=== PATIENT | male | born 1985 | race Caucasian/White ===

== ENCOUNTER 2023-11-14 00:50 | Emergency (ER) | payer BC, SELFPAY ==
[2023-11-14 00:52] VITALS: BP 155/68; PULSE 69; RESP 16; TEMP 36.2; O2SAT 98; BMI 37.1
[2023-11-14] MEDS: Tetracaine 0.5% Ophthalmic Bottle 1 DRP LEFT EYE (01:28)
[2023-11-14] MEDS: Fluorescein 1 MG STRIP 1 STRIP LEFT EYE (01:29)
--- NOTE | 2023-11-14 01:51 | EDS_ITS ---
HPI History of Present Illness Chief Complaint: Eye Problem Informant: patient Narrative Narrative: Patient is a 38-year-old male with past medical history of anxiety and depression and xmg-jasvxax-esirgodyb diabetes who wears glasses but not contact. He states that the other day he was working when the material he was working on broke and it got into his left eye. He states he went to a outside ER and was told he had a corneal abrasion but no retained foreign body. Patient states that he feels that there is still something stuck in his eye and that now there has been increased tearing and discharge. As he is concerned there is retained foreign body he presents for evaluation [facility] Medical History (Updated 11/14/23 @ 22:[address] Bc Chino, DO) Depression Anxiety Wears glasses Diabetes Home Medications ?Medication ?Instructions ?Recorded ?Last Taken ?Type ciprofloxacin HCl 0.3 % eye drops 2 drp LEFT EYE 4X/DAY 7 days #10 mL 11/14/23 Unknown Rx oxycodone-acetaminophen 5 mg-325 1 tab PO Q6H PRN pain 3 days #12 11/14/23 Unknown Rx mg tablet (Percocet) tabs Allergy/AdvReac Type Severity Reaction Status Date / Time olanzapine (From Zyprexa) AdvReac Other Verified 11/14/23 00:53 quetiapine (From Seroquel) AdvReac Other Verified 11/14/23 00:53 Surgical History (Updated 11/14/23 @ 00:55 by Lauren Jimenez) Hx of tonsillectomy Social History Smoking Status: Current every day smoker tobacco type: e-cigarettes ROS ROS ED Constitutional Constitutional ED: Denies chills or fever(s) Eyes Eyes: Reports blurry vision and change in vision; Denies diplopia ENT ENT ED: Denies sore throat Cardiovascular Cardiovascular: Denies chest pain Respiratory/Chest Respiratory/Chest: Denies cough or dyspnea Gastrointestinal Gastrointestinal: Denies abdominal pain, diarrhea, nausea or vomiting Genitourinary Genitourinary ED: Denies dysuria Musculoskeletal Musculoskeletal: Denies myalgias Integumentary Denies rash Neurologic Neurologic: Denies headache(s) Psychiatric Psychiatric: Reports anxiety and depression Hematologic/Lymphatic Hematologic/Lymphatic: Denies easy bleeding or easy bruising EXAM Physical Exam Const Vital Signs: 11/14/23 00:52 Temperature 97.1 F L Temperature Source Temporal Pulse Rate 69 Respiratory Rate 16 Blood Pressure 155/68 H Blood Pressure Mean 97 Pulse Ox 98 Oxygen Delivery Method Room Air Positive well nourished and well developed General Appearance ED: well developed HEENT HEENT Narrative: Normocephalic atraumatic Eyes PERRL and EOMs intact bilaterally Eyes Narrative: Pupils are equal reactive to light and accommodation extraocular muscles are intact There is mild soft tissue swelling of the left upper eyelid noted Scleral injection is present with increased tearing and scant amount of purulent discharge Upper lid was everted and there is no obvious foreign body noted Patient did have complete relief of pain with tetracaine Fluorescein staining and examination with the slit-lamp shows a large corneal abrasion encompassing the entire pupil. However there is no retained foreign body noted. Negative Emily sign. Neck supple Resp normal respiratory effort and clear to auscultation bilaterally Cardio regular rate and regular rhythm Extremity normal to inspection Neuro oriented x3, CN's II-XII intact bilaterally, moves all extremities and no sensory deficits noted Sensorium / Orientation: alert Motor Exam: strength 5/5 throughout Psych Psych Narrative: Positive nervous/anxious affect Skin no rashes or lesions noted MDM MDM MDM Narrative Medical decision making narrative: Patient presented to the ER complaining of increased pain with concern of retained foreign body. Differential diagnosis is for retained foreign body versus globe rupture versus corneal abrasion versus corneal ulcer versus conjunctivitis. The patient did receive complete relief of pain with tetracaine consistent with a corneal abrasion. Examination with the slit-lamp reveals no sign of globe rupture and there is no obvious retained foreign body noted on slit lamp exam either. The patient does have a large corneal abrasion to the left eye which correlates with his history and symptoms. He does not wear contacts but with the increasing discharge there is concern for developing infection so he will be started on ciprofloxacin drops. He will be placed on Percocet for pain control but at this time as there is no globe rupture or retained foreign body and no signs of systemic infection he can be discharged home and follow-up with ophthalmology on an outpatient basis History & Record Review Discussion w/independent historian: Patient Discharge Plan Triage Chief Complaint: Eye Problem ED Provider: Bc Chino Dx/Rx/DC Orders Clinical Impression: Injury of conjunctiva and corneal abrasion of left eye w/o FB, Anxiety and depression, Non-insulin dependent diabetes mellitus Instructions: Corneal Injury Prescriptions: New ciprofloxacin HCl 0.3 % drops 2 drp LEFT EYE 4X/DAY 7 Days Qty: 10 0RF oxycodone-acetaminophen [Percocet] 5-325 mg tablet 1 tab PO Q6H PRN (Reason: pain) 3 Days Qty: 12 0RF Primary Care Provider: TALON ANN Referrals: Yaquelin Cardoso MD [Med Staff - Active Staff] - [facility] Doctor,Out of [Non-Staff] - Activity Restrictions/Additional Instructions: Stop using the tetracaine/numbing eyedrops you are given by the other ER as this could be worsening or corneal abrasion. Begin using antibiotics to prevent infection and follow-up with ophthalmology for repeat evaluation. Return to the ER should you have any further concerns Print Language: Lithuanian Disposition Disposition: Home, Self Care Discharge Date/Time: 11/14/23 02:17
[2023-11-14 01:53] VITALS: BP 129/95; PULSE 70; RESP 18; TEMP 36.8; O2SAT 98
[2023-11-14] MEDS: HYDROcodone Bitartrate/Apap 5/325 Tablet PO (02:04)
== END 2023-11-14 02:17 | disposition home or self-care (01) ==
PROVIDERS: Emergency Provider Emergency Medicine; Visit Provider Emergency Medicine
DX: S05.02XA Injury of conjunctiva and corneal abrasion without foreign body, left eye, initial encounter (principal); E11.9 Type 2 diabetes mellitus without complications; F41.9 Anxiety disorder, unspecified; F32.A Depression, unspecified; F17.290 Nicotine dependence, other tobacco product, uncomplicated; X58.XXXA Exposure to other specified factors, initial encounter
CPT/HCPCS: 99284